=== PATIENT | male | born 1970 | race Caucasian/White ===

== ENCOUNTER 2021-01-14 17:03 | Emergency (ER) | payer OTHER ==
[~2021-01-14] VITALS: Ht 175.3 cm; Wt 72.6 kg
[2021-01-14] MEDS ORDERED: TERA2CAP4 PO (17:26)
--- NOTE | 2021-01-14 17:30 | NUR ---
Pt c/o severe penis pain, getting worse throughout today, denies ABD pain. Weak stream, frequency. Pt denies CP, SOB, dizziness, n/v, no other complaints, moderate to severe distress noted.
[2021-01-14 17:31] LABS: *BILIRUBIN,URIN NEGATIVE (NEGATIVE); *BLOOD, URINE 1+ (NEGATIVE); *CLARITY,URINE CLEAR (CLEAR); *COLOR,URINE YELLOW (YELLOW); *KETONES,URINE NEGATIVE (NEGATIVE); *UROBILINOGEN,URINE 0.2 E.U./dl (NORMAL); LEUKOCYTE ESTERASE ,URINE NEGATIVE (NEGATIVE); NITRITE, URINE NEGATIVE (NEGATIVE); PH,URINE 5.5 (5.0-8.0); UGLUCOSE NEGATIVE (NEGATIVE)
[2021-01-14 17:38] LABS: BACTERIA,URINE NONE SEEN /HPF (NONE SEEN); SQUAMOUS EPITHELIAL CELL,UR NONE SEEN /HPF (NONE SEEN); WBC,URINE 0-3 /HPF (0-3)
[2021-01-14] MEDS ORDERED: LIDOCAINE 2% (UROJET) 10 ML JELLY MM ONE (17:44)
--- NOTE | 2021-01-14 18:15 | NUR ---
placed galvan catheter, 14fr coude, using aseptic technique, secured to leg. Started IV 20g, Right AC, ziyad blood, taken to lab.
[2021-01-14] MEDS ORDERED: MORPHINE SULFATE 4 MG/1 ML DISP.SYRIN ONE ×2 (18:20→19:23)
[2021-01-14] MEDS ORDERED: ONDANSETRON 4 MG/2 ML VIAL ONE (18:20)
[2021-01-14] MEDS: LIDOCAINE 2% (UROJET) 10 ML JELLY MM ONE (18:24)
[2021-01-14] MEDS: ONDANSETRON 4 MG/2 ML VIAL IV ONE (18:25)
[2021-01-14] MEDS: MORPHINE SULFATE 4 MG/1 ML DISP.SYRIN IV ONE ×2 (18:26→19:19)
[2021-01-14 18:35] LABS: BASOPHILS % (AUTO) 0.3 % (0.0-2.0); EOSINOPHILS % (AUTO) 0.1 % (0.0-7.0); HEMATOCRIT 43.5 % (36.7-47.1); HEMOGLOBIN 14.6 g/dL (12.5-16.3); LYMPHOCYTES # (AUTO) 1.2 K/uL (20.0-40.0); LYMPHOCYTES % (AUTO) 9.7 % (20.5-51.5); MEAN CORPUSCULAR HEMOGLOBIN 30.3 uug (23.8-33.4); MEAN CORPUSCULAR HGB CONC 34 g/dL (32.5-36.3); MEAN CORPUSCULAR VOLUME 90.3 fL (73.0-96.2); MONOCYTES # (AUTO) 0.7 K/uL (2.0-10.0); MONOCYTES % (AUTO) 5.5 % (0.0-11.0); NEUTROPHILS # (AUTO) 10.5 K/uL (1.8-8.9); NEUTROPHILS % (AUTO) 84.4 % (38.5-71.5); PLATELET COUNT (AUTO) 233 K/uL (152-348); RED BLOOD CELL COUNT(AUTO) 4.82 MIL/uL (4.06-5.63); WHITE BLOOD COUNT (AUTO) 12.4 K/uL (3.6-10.2)
[2021-01-14 18:38] LABS: CREATININE 0.9 mg/dL (0.6-1.3)
[2021-01-14] MEDS ORDERED: CEPH250C PO (19:06)
[2021-01-14] MEDS ORDERED: HYDR-3976 PO (19:06)
[2021-01-14 19:50] VITALS: BP 125/77
--- NOTE | 2021-01-14 19:50 | NUR ---
Patient discharged to home in stable condition. Written and verbal after care instructions given. Patient verbalizes understanding of instructions. Stressed follow up or return to ER for worsening s/s. Patient ambulated with steady gait. Patient's will be driving him home from ED. IV removed. Catheter intact and site benign. Pressure and 4x4 gauze applied to site. No bleeding noted.
== END 2021-01-14 19:51 | disposition home or self-care (01) ==
LOC: ER 17:03
DX: N40.1 Benign prostatic hyperplasia with lower urinary tract symptoms (principal); R33.8 Other retention of urine; Z88.6 Allergy status to analgesic agent; Z88.1 Allergy status to other antibiotic agents; E78.5 Hyperlipidemia, unspecified
CPT/HCPCS: 36415; 51702; 80048; 81001; 85025; 96374; 96375; 96376; 99284; J2270 ×2; J2405; A4663

== ENCOUNTER 2023-04-02 00:28 | Emergency (ER) | payer OTHER ==
[~2023-04-02] VITALS: Ht 172.7 cm; Wt 74.8 kg
[~2023-04-02 00:28] MED LIST: CEPH250C PO; HYDR-3976 PO; TERA2CAP4 PO
[2023-04-02] MEDS ORDERED: ESCI20TA PO (00:34)
[2023-04-02] MEDS ORDERED: ARIP10TA9 PO (00:34)
[2023-04-02] MEDS ORDERED: LIDOCAINE HCL 1% 20 ML VIAL ONE (00:57)
[2023-04-02] MEDS ORDERED: TDAP DIPH,PERTUSS,TET VAC/PF 0.5 ML DISP.SYRIN IM ONE ×2 (02:27→02:30)
[2023-04-02] MEDS ORDERED: HYDROCODONE/APAP 5-325MG TABLET ONE ×2 (02:27→02:30)
[2023-04-02] MEDS ORDERED: HYDROCODONE/APAP 5-325MG TABLET PO ONE (02:30)
[2023-04-02] MEDS ORDERED: CEPH500C2 PO (02:33)
[2023-04-02 02:37] VITALS: BP 119/66; O2SAT 99
== END 2023-04-02 02:38 | disposition home or self-care (01) ==
LOC: ER 00:32
DX: S61.210A Laceration without foreign body of right index finger without damage to nail, initial encounter (principal); E78.5 Hyperlipidemia, unspecified; Z88.6 Allergy status to analgesic agent; Z88.1 Allergy status to other antibiotic agents; Z79.899 Other long term (current) drug therapy; W26.8XXA Contact with other sharp object(s), not elsewhere classified, initial encounter; Y93.89 Activity, other specified; Y92.89 Other specified places as the place of occurrence of the external cause; Y99.8 Other external cause status
CPT/HCPCS: 12001; 90471; 90715; 99283; J3490; A4663